=== PATIENT | male | born 2000 | race Caucasian/White ===

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

== ENCOUNTER 2024-01-03 22:02 | Emergency (ER) | payer OTHER ==
[2024-01-03 22:22] VITALS: BP 130/80; PULSE 62; RESP 14; TEMP 98.1; BMI 20.4
[2024-01-03] MEDS ORDERED: ONDANSETRON *ODT* 4 MG TABLET ONE (23:16)
[2024-01-03] MEDS ORDERED: KETOROLAC TROMETHAMINE 30 MG/1 ML VIAL ONE (23:18)
[2024-01-03] MEDS: KETOROLAC TROMETHAMINE 30 MG/1 ML VIAL IM ONE (23:31)
[2024-01-03] MEDS: ONDANSETRON *ODT* 4 MG TABLET SL ONE (23:39)
== END 2024-01-03 23:51 | disposition home or self-care (01) ==
LOC: FER 22:02
PROC: 3E0233Z Introduction of Anti-inflammatory into Muscle, Percutaneous Approach (ICD-10-PCS; principal; 2024-01-03)
DX: G43.909 Migraine, unspecified, not intractable, without status migrainosus (principal); R11.0 Nausea
CPT/HCPCS: 70450-TC; 99284-25; Q0162